=== PATIENT | female | born 1995 | race Caucasian/White ===

== ENCOUNTER 2025-06-12 16:08 | Outpatient (OUT) | payer OTHER, SELFPAY ==
--- NOTE | 2025-06-12 16:45 | MM_ITS ---
Patient Name: SUNITA TORRES MR#: [id number] : 1995 Exam Date: 06/12/2025 Ordering Doctor: DR. ABRIL PEREZ RADIOLOGY REPORT PROCEDURE: MM TOMOSYNTHESIS SCREENING BI COMPARISON: None. INDICATIONS: Screening for malignant neoplasm Calculator Name NCI Breast Cancer Risk Assessment Tool 5 Year Breast Cancer Risk Not Reported. Lifetime Breast Cancer Risk Not Reported. Personal Breast Cancer No Personal Ovarian Cancer No Treatments None Family Cancers None LOCATION: [facility] BREAST COMPOSITION: The breasts are heterogeneously dense, which may obscure small masses. FINDINGS: RIGHT BREAST: No significant suspicious finding. LEFT BREAST: No significant suspicious finding. There is a 1.6 cm area of focal asymmetry in the lateral aspect of the left breast at the 3 o'clock position 2.5 cm from the nipple. DIAGNOSTIC CATEGORY 0--INCOMPLETE: NEED ADDITIONAL IMAGING EVALUATION. RECOMMENDATIONS: ADDITIONAL MAMMOGRAPHIC VIEWS REQUIRED: LEFT BREAST - follow-up with spot compressed views of the left breast and ultrasound if necessary is recommended. Dictated by: Hua Romano MD on 06/13/2025 at 07:57 Approved by: Hua Romano MD on 06/13/2025 at 08:03
== END 2025-06-12 16:09 | disposition home or self-care (01) ==
LOC: MAMMO 16:09
DX: Z12.31 Encounter for screening mammogram for malignant neoplasm of breast (principal); R92.8 Other abnormal and inconclusive findings on diagnostic imaging of breast
CPT/HCPCS: 77063; 77067

== ENCOUNTER 2025-07-29 15:26 | Outpatient (OUT) | payer OTHER, SELFPAY ==
--- NOTE | 2025-07-29 15:31 | MM_ITS ---
Patient Name: SUNITA TORRES MR#: [id number] : 1995 Exam Date: 07/29/2025 Ordering Doctor: NON-STAFF PHYSICIAN RADIOLOGY REPORT PROCEDURE: MM TOMOSYNTHESIS DIAGNOSTIC LT COMPARISON: MM TOMOSYNTHESIS SCREENING BI, 06/12/2025. INDICATIONS: Diagnostic Calculator Name NCI Breast Cancer Risk Assessment Tool 5 Year Breast Cancer Risk Not Reported. Lifetime Breast Cancer Risk Not Reported. Personal Breast Cancer No Personal Ovarian Cancer No Treatments None Family Cancers None LOCATION: [facility] BREAST COMPOSITION: The breasts are heterogeneously dense, which may obscure small masses. FINDINGS: Residual breast parenchyma identified with compression imaging. No distinct nodule identified. DIAGNOSTIC CATEGORY 2--BENIGN FINDING: RECOMMENDATIONS: CLINICAL EVALUATION. Dictated by: James Osuna DO on 07/29/2025 at 16:02 Approved by: James Osuna DO on 07/29/2025 at 16:08
== END 2025-07-29 15:27 | disposition home or self-care (01) ==
LOC: MAMMO 15:26
DX: R92.8 Other abnormal and inconclusive findings on diagnostic imaging of breast (principal)
CPT/HCPCS: 77065; G0279